=== PATIENT | male | born 1930 | race Caucasian/White ===

== ENCOUNTER 2018-12-30 00:43 | Inpatient (IN) | payer MEDICARE ==
[~2018-12-30] VITALS: Ht 182.9 cm; Wt 113.3 kg
[2018-12-30] MEDS ORDERED: ASPI81CH PO (01:05)
[2018-12-30] MEDS ORDERED: AMLO10 PO (01:05)
[2018-12-30] MEDS ORDERED: ALBU90OI61 INH (01:05)
[2018-12-30] MEDS ORDERED: B-121000 MC2 PO (01:06)
[2018-12-30] MEDS ORDERED: CLOBET30L TOP (01:06)
[2018-12-30] MEDS ORDERED: ATEN25 PO (01:06)
[2018-12-30] MEDS ORDERED: MIRT30 PO (01:07)
[2018-12-30] MEDS ORDERED: Hydrochlorothia25 MG PO (01:07)
[2018-12-30] MEDS ORDERED: GLIP5 PO (01:07)
[2018-12-30] MEDS ORDERED: METF500 PO (01:08)
[2018-12-30] MEDS ORDERED: Terazosin HCl10 MG PO (01:08)
[2018-12-30] MEDS ORDERED: Zantac150 MG PO (01:08)
[2018-12-30] MEDS ORDERED: INCRUSE ELLI62.5 MCG INH (01:09)
[2018-12-30 05:13] LABS: Mean Corpuscular HGB 29.5 pg (26.0-34.0); Mean Corpuscular HGB Conc 31.7 g/dL (31.5-36.5); Mean Corpuscular Volume 93 fL (80-100); Mean Platelet Volume 10.2 fL (9.1-12.4); Platelet Count 180 K/mm3 (150-400); RDW Coefficient Variation 12.9 % (11.7-14.2); RDW Standard Deviation 44.1 fL (35.1-46.3); White Blood Cell Count 9.18 K/mm3 (4.00-11.30)
[2018-12-30 05:33] LABS: Albumin, Blood 3.1 g/dL (3.4-5.0); Albumin/Globulin Ratio 0.9 (0.8-1.8); Bilirubin, Total 0.4 mg/dL (0.1-1.0); Bun/Creatinine Ratio 16.9 (12.0-20.0); Calcium, Blood 8.6 mg/dL (8.5-10.1); Creatinine, Blood 1.54 mg/dL (0.60-1.20); Globulin, Blood 3.5 g/dL (2.2-4.0); Potassium, Blood 5.8 mmol/L (3.5-5.5); Total Protein, Blood 6.6 g/dL (6.4-8.2)
--- NOTE | 2018-12-30 07:13 | NUR ---
SHIFT SUMMARY PT NEW ADMIT THIS SHIFT. NPO. NEW NGT PLACED WITH 1100cc DARK GREEN OUT. IVF PER ORDERS. PAIN CONTROLLED WITH 1MG IV DILAUDID PER ORDERS. NO NAUSEA POST NGT PLACEMENT. ELEVATED POTASSIUM NOTED THIS AM, AWAITING MEDICATIONS FROM PHARMACY. PT RESTING IN BED, NADN. CALL LIGHT IN REACH + PT DEMONSTRATED USE WHEN ASSISTANCE IS NEEDED.
[2018-12-30 10:47] LABS: Calcium, Blood 8.7 mg/dL (8.5-10.1); Creatinine, Blood 1.53 mg/dL (0.60-1.20); Potassium, Blood 5.4 mmol/L (3.5-5.5)
--- NOTE | 2018-12-30 12:00 | NUR ---
REPORT FROM NETO CLAY RN. ASSUMED PT CARE.
--- NOTE | 2018-12-30 12:05 | NUR ---
DR SANDERS TO ROOM FOR EVAL. PLAN TO CONTINUE NG TO LWS. TREAT PAIN/NAUSEA. WILL CHECK ON PT TOMORROW FOR POSSIBLE IMAGING WITH CONTRAST. PT HAS NO COMPLAINTS AT THIS TIME. FAMILY AT BEDSIDE.
--- NOTE | 2018-12-30 13:54 | NUR ---
PT SITTING UP ON SIDE OF BED. FAMILY AT BEDSIDE. NADN. PT VOIDED, DENIES PAIN AT THIS TIME.
--- NOTE | 2018-12-30 15:51 | NUR ---
PT IN NO DISTRESS. DENIES NEEDS FOR PAIN MEDS.
--- NOTE | 2018-12-30 16:53 | NUR ---
REPORT AND WALKING ROUNDS WITH MAGALY CAMPUZANO. NEW BAG IVF STARTED.
--- NOTE | 2018-12-30 17:11 | NUR ---
assumed care at this time. pt denies pain. states he has passed flatus several times. encouraging ambulation as tolerated. remains npo. fluids infusing at 100cc/hr. pt voiding with urinal. ngt to lis, 400 out this shift. pt on 2l oxygen. family at bedside. plan for repeat imaging tomorrow.
--- NOTE | 2018-12-31 07:00 | NUR ---
REPORT FROM BROOKLYN CAMPUZANO. ASSUMED PT CARE.
--- NOTE | 2018-12-31 07:11 | NUR ---
SHIFT SUMMARY PT RESTED WELL T/O NIGHT. AAOX4. NPO. NGT TO LIS, MODERATE AMOUNT 500cc LIGHT GREEN OUT. NO NAUSEA/PAIN T/O SHIFT. SBA TO AMBULATE IN ROOM. IVF PER ORDERS. CALL LIGHT IN REACH + WILL CONTINUE TO MONITOR.
--- NOTE | 2018-12-31 07:17 | NUR ---
DR SANDERS TO ROOM FOR EVAL. PLAN TO GET SMALL BOWEL FOLLOW THROUGH TODAY. PT DENIES PAIN/NAUSEA AT THIS TIME. VSS. DRESSING TO NG TUBE CHANGED. IV TO RIGHT WRIST INFUSING WELL. PLAN TO START NEW IV TODAY. CHLORASEPTIC SPRAY AT BEDSIDE.
--- NOTE | 2018-12-31 08:58 | NUR ---
PT MEDICATED PER EMAR. ASSISTED PT WITH URINAL. [facility] SMALL BOWEL FOLLOW THROUGH.
--- NOTE | 2018-12-31 08:59 | NUR ---
NG CLAMPED FOR TRANSPORT TO IMAGING.
--- NOTE | 2018-12-31 10:10 | NUR ---
FAMILY TO ROOM TO WAIT FOR PT. PT STILL IN IMAGING.
--- NOTE | 2018-12-31 11:26 | NUR ---
PT RETURNED FROM IMAGING.
--- NOTE | 2018-12-31 12:44 | NUR ---
PT NG STILL CLAMPED. DENIES N/V. STATES HE HAD A LARGE BM AFTER IMAGING. FAMILY AT BEDSIDE. PLAN TO DISCUSS IMAGING RESULTS WITH DR SANDERS.
--- NOTE | 2018-12-31 13:30 | NUR ---
PT UP TO RR FOR BM. DENIES PAIN, DENIES NAUSEA.
--- NOTE | 2018-12-31 14:32 | NUR ---
RESUMED NG TO LWS. PT DENIES NEEDS.
--- NOTE | 2018-12-31 15:00 | NUR ---
DR SANDERS PAGED RE IMAGING RESULTS AND FOR PT UPDATE.
--- NOTE | 2018-12-31 15:12 | NUR ---
RECHECKED PT BP AFTER ADMINISTERING IV BP MED. VSS. PT DENIES NEEDS. AWAITING CALL BACK FROM DR SANDERS.
--- NOTE | 2018-12-31 15:34 | NUR ---
DR HANSEN TO ROOM. PLAN TO DC NG TUBE, RESUME HOME MEDS, START DIET.
--- NOTE | 2018-12-31 15:43 | NUR ---
NG DC PER EMAR. IV HEPLOCK PER DR HANSEN. OK FOR CLEARS.
--- NOTE | 2018-12-31 16:00 | NUR ---
assumed care of pt, recvd report from previous RN Pradeep, pt sitting up in bedside chair, a/o x 4, smiling, states no pain, no nauseousness
--- NOTE | 2018-12-31 17:53 | NUR ---
from 1600, when assumed care of pt, pt has remained up in chair, pleasant/cooperative, a/o x 4, up to bathroom with bm x 1 and urine ouput >250 ml, no pain
[2019-01-01 04:09] LABS: BASOPHILS ABSOLUTE AUTO 0.03 K/mm3 (0.00-0.23); BASOPHILS PERCENT AUTO 0 % (0-2); EOSINOPHILS ABSOLUTE AUTO 0.27 K/mm3 (0.00-0.68); EOSINOPHILS PERCENT AUTO 4 % (0-6); Hematocrit 38.3 % (37.0-53.0); Hemoglobin 11.8 g/dL (13.5-17.5); IMMATURE GRAN ABSOLUTE AUTO 0.03 K/mm3 (0.00-0.10); IMMATURE GRAN PERCENT AUTO 0 % (0-1); LYMPHOCYTES ABSOLUTE AUTO 1.57 K/mm3 (0.84-5.20); LYMPHOCYTES PERCENT AUTO 22 % (21-46); MONOCYTES ABSOLUTE AUTO 0.69 K/mm3 (0.16-1.47); MONOCYTES PERCENT AUTO 10 % (4-13); Mean Corpuscular HGB 29.1 pg (26.0-34.0); Mean Corpuscular HGB Conc 30.8 g/dL (31.5-36.5); Mean Corpuscular Volume 94 fL (80-100); Mean Platelet Volume 9.8 fL (9.1-12.4); NEUTROPHILS ABSOLUTE AUTO 4.41 K/mm3 (1.96-9.15); NEUTROPHILS PERCENT AUTO 63 % (41-73); Platelet Count 157 K/mm3 (150-400); RDW Coefficient Variation 13.2 % (11.7-14.2); RDW Standard Deviation 45.2 fL (35.1-46.3); Red Blood Cell Count 4.06 M/mm3 (4.30-5.90)
[2019-01-01 04:21] LABS: Bun/Creatinine Ratio 15.5 (12.0-20.0); Calcium, Blood 7.9 mg/dL (8.5-10.1); Creatinine, Blood 1.42 mg/dL (0.60-1.20); Potassium, Blood 4.9 mmol/L (3.5-5.5)
[2019-01-01] MEDS ORDERED: DOCU100 PO (10:21)
[2019-01-01] MEDS ORDERED: GLIP2.5ER PO (10:21)
--- NOTE | 2019-01-01 10:41 | NUR ---
DISCHARGE DISCHARGE INSTRUCTIONS REVIEWED WITH PATIENT AND PATIENT QUESTIONS ANSWERED. PATIENT WAITING FOR HIS FAMILY TO ARRIVE TO TAKE HIM HOME
--- NOTE | 2019-01-01 11:35 | NUR ---
DISCHARGE FAMILY HERE TO SEE PATIENT. PATIENT DISCHARGED TO HOME
== END 2019-01-01 11:35 | disposition home or self-care (01) | DRG 389 ==
LOC: ER 00:43 → SURS 00:47 → MEDS 00:47 → SURS 02:13
PROVIDERS: Internal Medicine; ADMIT Internal Medicine
DX: K56.600 Partial intestinal obstruction, unspecified as to cause (principal); N17.9 Acute kidney failure, unspecified; J44.9 Chronic obstructive pulmonary disease, unspecified; E86.0 Dehydration; E66.01 Morbid (severe) obesity due to excess calories; E11.40 Type 2 diabetes mellitus with diabetic neuropathy, unspecified; G47.33 Obstructive sleep apnea (adult) (pediatric); K59.09 Other constipation; E11.22 Type 2 diabetes mellitus with diabetic chronic kidney disease; K21.9 Gastro-esophageal reflux disease without esophagitis; I12.9 Hypertensive chronic kidney disease with stage 1 through stage 4 chronic kidney disease, or unspecified chronic kidney disease; N18.3 Chronic kidney disease, stage 3 (moderate); Z79.82 Long term (current) use of aspirin; Z79.84 Long term (current) use of oral hypoglycemic drugs; Z87.891 Personal history of nicotine dependence
CPT/HCPCS: 36415; 74250; 80048; 80053; 82947; 85025; 85027; 94760; 96361; 96374; 96375; 99285-25; J0360; J0610; J1170; J1650; J2405; J3010; J7030

== ENCOUNTER 2019-03-11 14:58 | Observation (INO) | payer OTHER, MEDICARE ==
[~2019-03-11] VITALS: Ht 182.9 cm; Wt 90.7 kg
[~2019-03-11 14:58] MED LIST: ALBU90OI61 INH; AMLO10 PO; ASPI81CH PO; ATEN25 PO; B-121000 MC2 PO; CLOBET30L TOP; DOCU100 PO; GLIP5 PO; GLIP5ER PO; Hydrochlorothia25 MG PO; INCRUSE ELLI62.5 MCG INH; METF500 PO; MIRT30 PO; Terazosin HCl10 MG PO; Zantac150 MG PO
[2019-03-11 15:23] LABS: BASOPHILS ABSOLUTE AUTO 0.03 K/mm3 (0.00-0.23); BASOPHILS PERCENT AUTO 0 % (0-2); EOSINOPHILS PERCENT AUTO 1 % (0-6); Hematocrit 36.9 % (37.0-53.0); Hemoglobin 12.1 g/dL (13.5-17.5); IMMATURE GRAN ABSOLUTE AUTO 0.03 K/mm3 (0.00-0.10); IMMATURE GRAN PERCENT AUTO 0 % (0-1); LYMPHOCYTES PERCENT AUTO 27 % (21-46); MONOCYTES ABSOLUTE AUTO 0.58 K/mm3 (0.16-1.47); MONOCYTES PERCENT AUTO 8 % (4-13); Mean Corpuscular HGB 30.5 pg (26.0-34.0); Mean Corpuscular HGB Conc 32.8 g/dL (31.5-36.5); Mean Corpuscular Volume 93 fL (80-100); Mean Platelet Volume 9.8 fL (9.1-12.4); NEUTROPHILS ABSOLUTE AUTO 4.53 K/mm3 (1.96-9.15); NEUTROPHILS PERCENT AUTO 63 % (41-73); Platelet Count 178 K/mm3 (150-400); RDW Coefficient Variation 13.3 % (11.7-14.2); RDW Standard Deviation 45.5 fL (35.1-46.3); Red Blood Cell Count 3.97 M/mm3 (4.30-5.90); White Blood Cell Count 7.17 K/mm3 (4.00-11.30)
[2019-03-11 15:42] LABS: Alanine Aminotransfer (ALT/SGP 27 U/L (12-78); Albumin, Blood 3.2 g/dL (3.4-5.0); Albumin/Globulin Ratio 0.9 (0.8-1.8); Alk Phos 73 U/L (50-136); Anion Gap 6 mmol/L (6-16); Aspartate Aminotrans (AST/SGOT 19 U/L (12-37); Bilirubin, Total 0.4 mg/dL (0.1-1.0); Blood Urea Nitrogen 27 mg/dL (8-24); Bun/Creatinine Ratio 13.4 (12.0-20.0); CO2, Blood 30 mmol/L (21-32); Calcium, Blood 8.9 mg/dL (8.5-10.1); Chloride, Blood 96 mmol/L (98-108); Creatinine, Blood 2.02 mg/dL (0.60-1.20); Globulin, Blood 3.4 g/dL (2.2-4.0); Glomerular Filtration Rate 33 (60-); Glucose, Blood 178 mg/dL (70-99); Potassium, Blood 4.9 mmol/L (3.5-5.5); Sodium, Blood 132 mmol/L (136-145); Total Protein, Blood 6.6 g/dL (6.4-8.2); Troponin I <0.015 ng/mL (0.000-0.040)
[2019-03-11] MEDS ORDERED: CLOBET30L TOP (16:59)
[2019-03-11] MEDS ORDERED: B-121000 MC2 PO (17:01)
[2019-03-11] MEDS ORDERED: MIRT30 PO (17:08)
--- NOTE | 2019-03-11 18:20 | NUR ---
SHIFT SUMMARY PT ARRIVED TO ROOM VIA WHEELCHAIR AT 1725. PT ORIENTED TO ROOM. ADMISSION IN PROCESS OF COMPLETION WITH HELP OF CHARGE NURSE AT THIS TIME. . VSS AT 1732 SHOWED HR OF 54 AND BP OF 160/80. PT 98% ON RA. IV PATENT AND SALINE LOCKED. PT RESTING IN BED AT THIS TIME. UP WITH 1 ASSIST.
--- NOTE | 2019-03-12 00:23 | NUR ---
PATIENT COMPLAINING OF PAIN AT THE TOP OF HIS HEAD. AND NECK. PER PATIENT STATEMENT, "IT FEELS LIKE I HIT MY HEAD ON SOMETHING AND JAMMED MY NECK." GAVE PATIENT TYLENOL WITH NO RELIEF. PATIENT HAS A ROUND RED AMRK ON HIS RIGHT FOREHEAD NEAR THE HAIRLINE, POSSIBLE BUMP ON TOP OF THE HEAD. REPORTED TO [facility]. WILL CONTINUE TO MONITOR
[2019-03-12 00:51] LABS: Source, Urine Clean Catch
[2019-03-12 00:54] LABS: Bilirubin, Urine Neg (Neg); Blood, Urine Neg (Neg); Glucose Qualitative, Urine 2+ (Neg); Ketones, Urine Neg (Neg); Leukocyte Esterase, Urine Neg (Neg); Nitrite, Urine Neg (Neg); Protein, Urine 1+ (Neg); Specific Gravity, Urine 1.005 (1.003-1.022); Urobilinogen, Urine NORM (Normal)
[2019-03-12 01:00] LABS: Appearance, Urine Clear (Clear); Color, Urine Yellow (P-Yellow)
[2019-03-12 05:31] LABS: Bun/Creatinine Ratio 13.5 (12.0-20.0); Calcium, Blood 8.1 mg/dL (8.5-10.1); Creatinine, Blood 1.93 mg/dL (0.60-1.20); Potassium, Blood 4.3 mmol/L (3.5-5.5)
--- NOTE | 2019-03-12 12:32 | NUR ---
SET OF ORTHOSTATIC VITAL SIGNS WAS TAKEN OF PATIENT. THERE ARE FOLLOWS: LYING- 160/72 PULSE 49 SITTING- 126/62 PULSE 59 STANDING- 130/50 PULSE 55
--- NOTE | 2019-03-12 17:56 | NUR ---
SHIFT SUMMARY PATIENT HAS BEEN PLEASANT. ORTHOSTATIC VITALS HAVE BEEN TAKEN WITH SIGNIFICANT CHANGES NOTICED FROM PATIENT LYING DOWN TO SITTING UP. PATIENT DENIED DIZZINESS DURING VITALS OR WHEN HE WAS SAT UP. NO ACUTE CONCERNS. HE IS ALERT AND ORIENTED, NO OXYGEN NEED.
--- NOTE | 2019-03-13 04:37 | NUR ---
SHIFT SUMMARY: 88 Y/O MALE RESTED COMFORTABLY ALL SHIFT IN BED, DENIES PAIN OR NAUSEA, NO VERTIGO, PAIN OR NAUSEA NOTED, ALERT AND ORIENTED X 4, BED LOW POSITION, CALL LIGHT AT SIDE.
[2019-03-13 05:22] LABS: Albumin, Blood 2.8 g/dL (3.4-5.0); Anion Gap 3 mmol/L (6-16); Blood Urea Nitrogen 25 mg/dL (8-24); Bun/Creatinine Ratio 15.2 (12.0-20.0); CO2, Blood 30 mmol/L (21-32); Calcium, Blood 8.3 mg/dL (8.5-10.1); Chloride, Blood 108 mmol/L (98-108); Creatinine, Blood 1.64 mg/dL (0.60-1.20); Glomerular Filtration Rate 42 (60-); Glucose, Blood 102 mg/dL (70-99); Phosphorus, Blood 3.7 mg/dL (2.5-4.9); Potassium, Blood 4.5 mmol/L (3.5-5.5); Sodium, Blood 141 mmol/L (136-145)
[2019-03-13] MEDS ORDERED: ACET325 PO (12:34)
[2019-03-13] MEDS ORDERED: CYAN500 PO (12:35)
--- NOTE | 2019-03-13 12:53 | NUR ---
SHIFT SUMMARY PATIENT PLEASANT. NO ACUTE CONCERNS AT TIME OF DISCHARGE. IV REMOVED. PATIENT GIVEN INSTRUCTIONS WITH STEP DAUGHTER IN THE ROOM. [facility] AND VER[facility] PRIOR TO DISCHARGE. PATIENT WHEELED OUT BY FAMILY.
== END 2019-03-13 12:47 | disposition home or self-care (01) ==
LOC: ER 14:58 → MEDS 16:20 → ER 16:20 → MEDS 16:20
PROVIDERS: Emergency Medicine; Internal Medicine; ADMIT Hospitalist
DX: T67.5XXA Heat exhaustion, unspecified, initial encounter (principal); I95.1 Orthostatic hypotension; N17.9 Acute kidney failure, unspecified; E86.0 Dehydration; J44.9 Chronic obstructive pulmonary disease, unspecified; I12.9 Hypertensive chronic kidney disease with stage 1 through stage 4 chronic kidney disease, or unspecified chronic kidney disease; E11.22 Type 2 diabetes mellitus with diabetic chronic kidney disease; N18.3 Chronic kidney disease, stage 3 (moderate); D63.1 Anemia in chronic kidney disease; E11.42 Type 2 diabetes mellitus with diabetic polyneuropathy; R30.0 Dysuria; E87.1 Hypo-osmolality and hyponatremia; F43.10 Post-traumatic stress disorder, unspecified; Z87.891 Personal history of nicotine dependence; Z88.8 Allergy status to other drugs, medicaments and biological substances; Z88.1 Allergy status to other antibiotic agents; Z88.0 Allergy status to penicillin; Z79.899 Other long term (current) drug therapy; Z79.51 Long term (current) use of inhaled steroids; Z79.84 Long term (current) use of oral hypoglycemic drugs; Z79.82 Long term (current) use of aspirin
CPT/HCPCS: 36415; 71046; 80048; 80053; 80069; 82947; 84484; 85025; 93005; 93010; 96360; 96361; 99285-25; A9270; G0378; J7030